=== PATIENT | female | born 1950 | race Caucasian/White ===

== ENCOUNTER → 2018-05-28 | Outpatient (CLI) | payer OTHER, MEDICAID ==
[~2018-05-28] MED LIST: ADULT LOW DOSE81 MG PO; AMBIEN 10 MG TA10 MG PO; CARAFATE 1 GM TA1 G1 PO; CRESTOR5 MG PO; EFFEXOR37.5 MG PO; LOPRESSOR25 OR; METFORMIN HCL500 MG PO; NITROGLYCERIN0.4 MG SL; PEPCID AC20 M1 PO; PLAVIX 75 MG TA75 MG PO
== END ==
LOC: M.RAD 08:55
DX: Z12.31 Encounter for screening mammogram for malignant neoplasm of breast (principal); E28.39 Other primary ovarian failure; Z78.0 Asymptomatic menopausal state

== ENCOUNTER → 2020-02-15 | Outpatient (CLI) | payer OTHER ==
[~2020-02-15] MED LIST changes: +AMBIEN5 MG PO; +ASA81BEC PO; +CYCLOBENZAPRINE5 MG PO; +EFFER-K 10 MEQ10 ME1 PO; +HYDROCHLOROTHIA25 M2 PO; +LIDODERM1 EACH TOP; +LIPITOR 10 MG10 M1 PO; +MEDROLDOSEPACK PO; +METFORMIN HCL500 M3 PO; +PRESERVISION T1 EACH PO; +PROTONIX 20 MG20 MG PO; +TYLENOL WITH CO1 TA1 PO; +XANAX 0.5 MG0.5 MG PO
== END ==
LOC: M.RAD 14:57
PROVIDERS: ATTEND Family Medicine
DX: Z12.31 Encounter for screening mammogram for malignant neoplasm of breast (principal)

== ENCOUNTER → 2020-06-13 | Outpatient (CLI) | payer OTHER, MEDICAID ==
[~2020-06-13] MED LIST changes: +ZETIA10 MG PO
== END ==
LOC: M.PC 09:15
PROVIDERS: ATTEND Physical Medicine & Rehabilitation
DX: M51.17 Intervertebral disc disorders with radiculopathy, lumbosacral region (principal); M43.16 Spondylolisthesis, lumbar region; M47.26 Other spondylosis with radiculopathy, lumbar region; M48.061 Spinal stenosis, lumbar region without neurogenic claudication; M16.11 Unilateral primary osteoarthritis, right hip; M76.891 Other specified enthesopathies of right lower limb, excluding foot; Z88.8 Allergy status to other drugs, medicaments and biological substances; Z68.33 Body mass index [BMI] 33.0-33.9, adult

== ENCOUNTER → 2020-06-27 | Outpatient (CLI) | payer OTHER | END | disposition home or self-care (01) | LOC: M.PC 09:40 | PROVIDERS: ATTEND Physical Medicine & Rehabilitation | DX: M54.16 Radiculopathy, lumbar region (principal); G89.29 Other chronic pain; M79.605 Pain in left leg; E11.40 Type 2 diabetes mellitus with diabetic neuropathy, unspecified; E66.01 Morbid (severe) obesity due to excess calories; Z98.890 Other specified postprocedural states; Z79.899 Other long term (current) drug therapy ==

== ENCOUNTER → 2020-12-12 | Outpatient (CLI) | payer OTHER ==
[~2020-12-12] MED LIST changes: +MUCINEX600 MG PO; +TYLENOL EXTRA500 MG PO; +VITAMIN D310 MC1 PO
== END ==
LOC: M.PC 10:01
PROVIDERS: ATTEND Physical Medicine & Rehabilitation
DX: M47.27 Other spondylosis with radiculopathy, lumbosacral region (principal); M48.07 Spinal stenosis, lumbosacral region; M43.17 Spondylolisthesis, lumbosacral region; M79.661 Pain in right lower leg; Z79.891 Long term (current) use of opiate analgesic; Z79.899 Other long term (current) drug therapy